=== PATIENT | female | born 1960 | race Caucasian/White ===

== ENCOUNTER 2017-12-26 13:56 | Emergency (ER) | payer OTHER ==
[~2017-12-26] VITALS: Ht 165.1 cm; Wt 99.9 kg
[~2017-12-26 13:56] MED LIST: ESTR0.5T PO; LEVO750T26 PO; OXYC-307 PO; PROM25SU34 PO; ZOLP12.52 PO
[2017-12-26 13:58] VITALS: BP 138/59
[2017-12-26] MEDS ORDERED: PROPARACAINE OPHTH 0.5%, 15ML ONE (14:19)
[2017-12-26] MEDS ORDERED: FLUORESCEIN OPHTHALMIC 1 MG STRIP EACHEYE ONE (14:30)
[2017-12-26] MEDS ORDERED: PROPARACAINE OPHTH 0.5%, 15ML EACHEYE ONE (14:30)
== END 2017-12-26 14:44 | disposition home or self-care (01) ==
LOC: ED 14:40
DX: B02.9 Zoster without complications (principal); G43.909 Migraine, unspecified, not intractable, without status migrainosus; Z90.49 Acquired absence of other specified parts of digestive tract; Z79.899 Other long term (current) drug therapy
CPT/HCPCS: 99283

== ENCOUNTER 2018-03-27 13:13 | Emergency (ER) | payer OTHER ==
[~2018-03-27] VITALS: Ht 165.1 cm; Wt 100.0 kg
[2018-03-27 13:17] VITALS: BP 146/89
== END 2018-03-27 15:31 | disposition home or self-care (01) ==
LOC: ED 15:12
DX: S16.1XXA Strain of muscle, fascia and tendon at neck level, initial encounter (principal); S29.012A Strain of muscle and tendon of back wall of thorax, initial encounter; S00.11XA Contusion of right eyelid and periocular area, initial encounter; S60.211A Contusion of right wrist, initial encounter; G43.909 Migraine, unspecified, not intractable, without status migrainosus; W01.0XXA Fall on same level from slipping, tripping and stumbling without subsequent striking against object, initial encounter; Y93.89 Activity, other specified; Y92.410 Unspecified street and highway as the place of occurrence of the external cause; Y99.8 Other external cause status
CPT/HCPCS: 70450; 70486; 72072; 72125; 99284